=== PATIENT | female | born 1980 | race Caucasian/White ===

== ENCOUNTER → 2018-07-05 | Outpatient (CLI) | payer OTHER ==
[2018-07-05 12:50] LABS: THYROID STIMULATING HORMONE 2.19 uIU/ML (0.358-3.740)
[2018-07-05 12:51] LABS: PROGESTERONE 23.14 NG/ML
[2018-07-05 12:52] LABS: ESTRADIOL 911.8 PG/ML
== END ==
LOC: M WUC 09:08
PROVIDERS: ATTEND Obstetrics & Gynecology Reproductive Endocrinology
DX: E28.9 Ovarian dysfunction, unspecified (principal)

== ENCOUNTER → 2018-07-11 | Outpatient (CLI) | payer OTHER ==
[2018-07-11 13:04] LABS: HCG, SERUM QUANTITATIVE < 1.0 MIU/ML
[2018-07-11 13:10] LABS: PROGESTERONE 27.87 NG/ML
== END ==
LOC: M WUC 09:24
PROVIDERS: ATTEND Obstetrics & Gynecology Reproductive Endocrinology
DX: E28.9 Ovarian dysfunction, unspecified (principal)